=== PATIENT | male | born 1985 | race Caucasian/White ===

== ENCOUNTER 2016-09-04 15:04 | Emergency (ER) | payer OTHER ==
[~2016-09-04] VITALS: Ht 175.3 cm; Wt 81.6 kg
[~2016-09-04 15:04] MED LIST: EPIPEN 2-PAK1 MG/ML IM; IBUPROFEN600 M1 PO; METHADONE H5 MG/5 ML PO; MOTRIN800 MG PO; PREDNICOT20 MG PO
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
[2016-09-04 17:43] VITALS: BP 132/80
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
[2016-09-04] MEDS ORDERED: MOBIC15 M1 PO (18:27)
[2016-09-04] MEDS ORDERED: CYCLOBENZAPRINE10 M1 PO (18:28)
== END 2016-09-04 18:40 ==
LOC: ERH 15:04
DX: S16.1XXA Strain of muscle, fascia and tendon at neck level, initial encounter (principal); S29.012A Strain of muscle and tendon of back wall of thorax, initial encounter; V49.40XA Driver injured in collision with unspecified motor vehicles in traffic accident, initial encounter
CPT/HCPCS: 72050; 72070; 72100; 96372; J1885

== ENCOUNTER 2017-01-29 16:31 | Emergency (ER) | payer OTHER ==
[~2017-01-29] VITALS: Ht 175.3 cm; Wt 75.8 kg
[~2017-01-29 16:31] MED LIST changes: +CYCLOBENZAPRINE10 M1 PO; +MOBIC15 M1 PO
[2017-01-29 16:42] VITALS: BP 125/71
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
[2017-01-29] MEDS ORDERED: EPIPEN 2-P0.3 MG/0.3 IM (17:53)
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
[2017-01-29] MEDS ORDERED: PERCOCET 5-3251 EACH PO (18:40)
[2017-01-29] MEDS ORDERED: MOBIC15 M1 PO (18:40)
== END 2017-01-29 18:55 ==
LOC: ERH 16:31
DX: S39.012A Strain of muscle, fascia and tendon of lower back, initial encounter (principal); X58.XXXA Exposure to other specified factors, initial encounter; Y92.9 Unspecified place or not applicable; Y93.9 Activity, unspecified
CPT/HCPCS: 72110; 96372; J1885

== ENCOUNTER 2017-11-24 07:57 | Emergency (ER) | payer OTHER ==
[~2017-11-24] VITALS: Ht 175.3 cm; Wt 81.6 kg
[~2017-11-24 07:57] MED LIST changes: +EPIPEN 2-P0.3 MG/0.3 IM; +PERCOCET 5-3251 EACH PO
[2017-11-24 08:09] VITALS: BP 131/70
[2017-11-24] MEDS ORDERED: BLEPH-105 ML OPH (08:25)
[2017-11-24] MEDS ORDERED: ACULAR5 ML OPH (08:25)
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
== END 2017-11-24 08:33 ==
LOC: ERH 07:57
DX: S05.02XA Injury of conjunctiva and corneal abrasion without foreign body, left eye, initial encounter (principal); W22.8XXA Striking against or struck by other objects, initial encounter; Y92.9 Unspecified place or not applicable; Y93.9 Activity, unspecified